=== PATIENT | female | born 1985 | race Caucasian/White ===

== ENCOUNTER 2016-08-16 21:10 | Emergency (ER) | payer SELFPAY ==
[~2016-08-16] VITALS: Ht 167.6 cm; Wt 89.6 kg
[~2016-08-16 21:10] MED LIST: CALC-137 PO; IRONCAP2 PO; LEVO100T4 PO; LISI-587 PO; POTA595T5 PO
[2016-08-16 21:24] VITALS: BP 122/74; PULSE 77; RESP 20; TEMP 98.1; O2SAT 100
[2016-08-16] MEDS ORDERED: CALCTAB98 PO (21:34)
[2016-08-16] MEDS ORDERED: LISI20TA3 PO (21:34)
[2016-08-16] MEDS ORDERED: FERR1TAB58 PO (21:34)
[2016-08-16] MEDS ORDERED: LEVO75TA3 PO (21:34)
[2016-08-16] MEDS ORDERED: M2 M100C (21:34)
[2016-08-16] MEDS ORDERED: POTA75TA PO (21:34)
[2016-08-16] MEDS ORDERED: MULTCAP PO (21:34)
[2016-08-16 21:45] LABS: BLOOD, URINE SMALL (NEG); GLUCOSE,URINE NEG (NEG); KETONE, URINE NEG (NEG); NITRITE,URINE NEG (NEG)
[2016-08-16 21:59] LABS: URINE COLOR YELLOW (YELLW/STRAW)
[2016-08-16 22:00] LABS: BACTERIA, URINE FEW /hpf; COMMENT (UR) CULTURE INDICATED; CULTURE IF INDICATED CULTURE INDICATED; SQUAMOUS EPITHELIAL CELL URINE 0-5 /hpf (0-5)
[2016-08-16 22:01] LABS: MUCUS URINE OCC /lpf (OCC)
[2016-08-16] MEDS ORDERED: BACT800T5 PO (22:10)
--- NOTE | 2016-08-16 22:11 | PD ---
HPI . Dysuria Chief Complaint: Complaint Time Seen by Provider: 21:34 Travel History International Travel<30 days: No Contact w/Intl Traveler<30days: No Traveled to known affect area: No History of Present Illness HPI Patient presents with a four-day history of dysuria. She has treated it at home with cranberry juice and AZO. She has had moderate relief of her symptoms with this treatment. It does have persisted. She denies any associated fever or flank pain. She is not having any vomiting. Pain is rated as a 6/10. 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) Immunizations Current: No Migraines: Yes Thyroid Disease: Yes (HYPOTHYROID) Tetanus Vaccination: Never Vaccinated ?: Not LMP: 08/09/16 Menopausal: No : 2 Para: 2 Past Surgical History Section: Yes (2007 AND 07/27/10) Social History Alcohol Use: No Tobacco Use: No Substance Use: No Allergies-Medications (Allergen,Severity, Reaction): Coded Allergies: Lactose (Verified Allergy, Severe, 08/16/16) Morphine (Unverified Allergy, Intermediate, Itching, 08/16/16) Tramadol (Unverified Allergy, Intermediate, Itching, 08/16/16) Milk (Verified Adverse Reaction, Mild, NAUSEA/INCREASED PHLEGM PRODUCTION , 08/16/16) *MDRO Multi-Drug Resistant Organism (Unverified Adverse Reaction, Unknown , 08/16/16) 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 Reported Meds & Prescriptions Reported Meds & Active Scripts Active Reported Multi For Her (Multiple Vitamins W/ Minerals) 1 Cap Cap Cap PO Magnesium 100 Mg Cap Calcium (Calcium Carbonate-Cholecalciferol) 1,250-125 Mg-Unit Tab 1 Tab PO BID Potassium 75 Mg Tab Cap PO Iron (Ferrous Sulfate) 50 Mg Tab 65 Mg PO DAILY Lisinopril-Hctz 20-25 Mg Tab 1 Tab PO DAILY Levothyroxine (Levothyroxine Sodium) 75 Mcg Tab 75 Mcg PO DAILY Review of Systems Except as stated in HPI: all other systems reviewed are Neg General / Constitutional: No: Fever, Chills Genitourinary: Positive: Dysuria, Pelvic Pain Physical Exam Narrative GENERAL: Awake and alert and in no acute distress. SKIN: Warm and dry. HEAD: Atraumatic. Normocephalic. EYES: Pupils equal and round. NECK: Trachea midline. CARDIOVASCULAR: Regular rate and rhythm. RESPIRATORY: No accessory muscle use. GI/: Suprapubic tenderness with no guarding or rebound. No CVA tenderness. MUSCULOSKELETAL: No obvious deformities. No edema. NEUROLOGICAL: Awake and alert. No obvious cranial nerve deficits. Motor grossly within normal limits. Normal speech. PSYCHIATRIC: Appropriate mood and affect; insight and judgment normal. Data Data Last Documented VS Vital Signs Date Time Temp Pulse Resp B/P Pulse Ox O2 Delivery O2 Flow Rate FiO2 08/16/16 21:24 98.1 77 20 122/74 100 Orders Urinalysis - C+S If Indicated (08/16/16 21:34) Urine Culture (08/16/16 21:38) Labs Laboratory Tests Test 08/16/16 21:38 Urine Color YELLOW Urine Turbidity CLEAR Urine pH 6.0 Urine Specific [place] 1.024 Urine Protein NEG mg/dL Urine Glucose (UA) NEG mg/dL Urine Ketones NEG mg/dL Urine Occult Blood SMALL Urine Nitrite NEG Urine Bilirubin NEG Urine Leukocyte Esterase SMALL Urine RBC 4-9 /hpf Urine WBC 9-14 /hpf Urine WBC Clumps FEW Urine Squamous Epithelial 0-5 /hpf Cells Urine Bacteria FEW /hpf Urine Mucus OCC /lpf Microscopic Urinalysis Comment CULTURE INDICATED MDM Medical Decision Making Medical Screen Exam Complete: Yes Emergency Medical Condition: Yes Differential Diagnosis Final differential diagnosis of urinary symptoms includes but is not limited to UTI, kidney stone, pyelonephritis, bacterial vaginosis, yeast infection, urinary retention Narrative Course Patient presents complaining with suprapubic discomfort and dysuria. Does have been moderately relieved by cranberry juice and AZO. UA is compatible with UTI. Diagnosis Primary Impression: Urinary tract infection Qualified Code: N30.00 - Acute cystitis without hematuria Patient Instructions: General Instructions, Urinary Tract Infection in Women ( GEN) Med/Other Pt SpecificInfo: Prescription(s) given Scripts Sulfamethoxazole-Trimethoprim (Bactrim DS)800-160 Mg Tab1 Tab PO BID #14 TAB Ref 0 Prov:Eve Moreno MD 08/16/16 Disposition: 01 DISCHARGE HOME Condition: Stable Eve Moreno MD August 16, 2016 22:11
[2016-08-16] MEDS ORDERED: SULFAMETHOXAZOLE-TRIMETHOPRIM DS 800-160 MG TAB PO ONE (22:15)
== END 2016-08-16 22:38 | disposition home or self-care (01) ==
LOC: PHED 21:10
DX: N39.0 Urinary tract infection, site not specified (principal); B96.20 Unspecified Escherichia coli [E. coli] as the cause of diseases classified elsewhere; D64.9 Anemia, unspecified; E03.9 Hypothyroidism, unspecified; E78.00 Pure hypercholesterolemia, unspecified; I10 Essential (primary) hypertension; M41.9 Scoliosis, unspecified; G80.9 Cerebral palsy, unspecified
CPT/HCPCS: 81001; 87077; 87086; 87186; 99283

== ENCOUNTER 2016-09-14 20:17 | Emergency (ER) | payer SELFPAY ==
[~2016-09-14] VITALS: Ht 167.6 cm; Wt 89.9 kg
[~2016-09-14 20:17] MED LIST changes: +BACT800T5 PO; -CALC-137 PO; +CALCTAB98 PO; +FERR1TAB58 PO; -IRONCAP2 PO; -LEVO100T4 PO; +LEVO75TA3 PO; -LISI-587 PO; +LISI20TA3 PO; +M2 M100C; +MULTCAP PO; -POTA595T5 PO; +POTA75TA PO
[2016-09-14 20:22] VITALS: BP 113/69; PULSE 84; RESP 16; TEMP 98.4; O2SAT 100
[2016-09-14] MEDS ORDERED: MULTTAB24 PO (20:42)
[2016-09-14] MEDS ORDERED: POTASSIUM PO (20:42)
[2016-09-14] MEDS ORDERED: CALCTAB19 PO (20:42)
[2016-09-14] MEDS ORDERED: MAGN200T PO (20:42)
[2016-09-14] MEDS ORDERED: FERR140T PO (20:42)
--- NOTE | 2016-09-14 20:49 | PD ---
HPI Chief Complaint: Pain: Acute or Chronic Time Seen by Provider: 20:25 Travel History International Travel<30 days: No Contact w/Intl Traveler<30days: No Traveled to known affect area: No History of Present Illness HPI The patient is a 30-year-old female that says her right nipple area has been tender for 2 days. She thinks she may have been sleeping on it wrong. She denies any jogging or anything to cause a friction burn. She denies any fever or any masses in the breast. She does not have a nipple discharge. She has been taking hydrochlorothiazide for her blood pressure. The patient sleeps on the right side. There is no involvement of the left breast. 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) Immunizations Current: No Migraines: Yes Thyroid Disease: Yes (HYPOTHYROID) ?: Not LMP: 09/12/16 Menopausal: No : 2 Para: 2 Past Surgical History Section: Yes (2007 AND 07/27/10) Social History Alcohol Use: No Tobacco Use: No Substance Use: No Allergies-Medications (Allergen,Severity, Reaction): Coded Allergies: Cipro (Verified Allergy, Severe, RESISTANT, 09/14/16) Lactose (Verified Allergy, Severe, 09/14/16) Morphine (Unverified Allergy, Intermediate, Itching, 09/14/16) Tramadol (Unverified Allergy, Intermediate, Itching, 09/14/16) Milk (Verified Adverse Reaction, Mild, NAUSEA/INCREASED PHLEGM PRODUCTION , 09/14/16) *MDRO Multi-Drug Resistant Organism (Unverified Adverse Reaction, Unknown , 09/14/16) 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 Reported Meds & Prescriptions Reported Meds & Active Scripts Active Bactrim DS (Sulfamethoxazole-Trimethoprim) 800-160 Mg Tab 1 Tab PO BID Reported Multi For Her (Multiple Vitamins W/ Minerals) 1 Cap Cap Cap PO Magnesium 100 Mg Cap Calcium (Calcium Carbonate-Cholecalciferol) 1,250-125 Mg-Unit Tab 1 Tab PO BID Potassium 75 Mg Tab Cap PO Iron (Ferrous Sulfate) 50 Mg Tab 65 Mg PO DAILY Lisinopril-Hctz 20-25 Mg Tab 1 Tab PO DAILY Levothyroxine (Levothyroxine Sodium) 75 Mcg Tab 75 Mcg PO DAILY Review of Systems Except as stated in HPI: all other systems reviewed are Neg Physical Exam Narrative GENERAL: Well-nourished, well-developed patient in minimal apparent distress with her right breast pain. Her vital signs are normal. SKIN: Focused skin assessment warm/dry. The breasts both appear symmetric without any masses. There is no evidence of friction burn, redness, cellulitis or abscess on the right breast. The breasts are somewhat pendulous and could get caught while sleeping. No retraction is noted of the breast. HEAD: Normocephalic. EYES: No scleral icterus. No injection or drainage. NECK: Supple, trachea midline. No JVD or lymphadenopathy. CARDIOVASCULAR: Regular rate and rhythm without murmurs, gallops, or rubs. RESPIRATORY: Breath sounds equal bilaterally. No accessory muscle use. GASTROINTESTINAL: Abdomen soft, non-tender, nondistended. MUSCULOSKELETAL: No cyanosis, or edema. BACK: Nontender without obvious deformity. No CVA tenderness. Data Data Last Documented VS Vital Signs Date Time Temp Pulse Resp B/P Pulse Ox O2 Delivery O2 Flow Rate FiO2 09/14/16 20:22 98.4 84 16 113/69 100 MDM Medical Decision Making Medical Screen Exam Complete: Yes Emergency Medical Condition: Yes Medical Record Reviewed: Yes Differential Diagnosis Cellulitis breast, abscess breast, friction burn nipple, hydrochlorothiazide related breast pain, trauma to right breast while sleeping Narrative Course I cannot find a reason for the patient's breast pain by examining the breast. There is no redness, abscess, cellulitis. There may have been minimal trauma to the right wrist while sleeping. Hydrochlorothiazide related breast pain is usually found in older women who have been on hydrochlorothiazide for a prolonged period of time. Nevertheless, the patient should hydrate herself well and wear a loose brought night to protect the breast. Since she does sleep on her right side the right breast may be involved in a slight crushing trauma. She does have pendulous breasts. Diagnosis Primary Impression: Breast pain, right Additional Instructions: As we discussed, I could find no other reason for your breast pain other than some trauma by sleeping on her right side. Do hydrate herself with Gatorade, this may help with hydrochlorothiazide related breast pain. I could find no infection. Follow-up with Dr. Carrera as scheduled. Wear a loose bra to protect your breast at night. Med/Other Pt SpecificInfo: No Change to Meds Disposition: 01 DISCHARGE HOME Condition: Stable Isaiah Sunshine MD September 14, 2016 20:48
== END 2016-09-14 21:00 | disposition home or self-care (01) ==
LOC: PHED 20:17
DX: N64.4 Mastodynia (principal); N64.89 Other specified disorders of breast; D64.9 Anemia, unspecified; I10 Essential (primary) hypertension; E78.00 Pure hypercholesterolemia, unspecified; K58.9 Irritable bowel syndrome, unspecified; G80.9 Cerebral palsy, unspecified; E03.9 Hypothyroidism, unspecified; M41.9 Scoliosis, unspecified
CPT/HCPCS: 99282

== ENCOUNTER 2016-11-08 12:46 | Emergency (ER) | payer SELFPAY ==
[~2016-11-08 12:46] MED LIST changes: -BACT800T5 PO; +CALCTAB19 PO; -CALCTAB98 PO; +FERR140T PO; -FERR1TAB58 PO; -M2 M100C; +MAGN200T PO; -MULTCAP PO; +MULTTAB24 PO; -POTA75TA PO
--- NOTE | 2016-11-08 12:53 | PD ---
HPI Chief Complaint: Skin Problem Time Seen by Provider: 12:53 Travel History International Travel<30 days: No Contact w/Intl Traveler<30days: No History of Present Illness HPI 31-year-old female presents the emergency department with several day history of worsening painful burning vesicular rash to the right upper back, extending around to the right breast. Patient states she did have chickenpox as a child, and thinks she may have shingles. She denies fever, chills, cough, or other constitutional symptoms. Patient states that it is very painful at an 8 out of 10. She has been using [id number] topical Caladryl with some relief. Patient is also been taking Naprosyn. Patient has a history of MRSA, is allergic to Cipro, lactulose, milk, morphine, and tramadol. 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) Immunizations Current: No Migraines: Yes Thyroid Disease: Yes (HYPOTHYROID) Menopausal: No : 2 Para: 2 Past Surgical History Section: Yes (2007 AND 07/27/10) Social History Alcohol Use: No Tobacco Use: No Substance Use: No Allergies-Medications (Allergen,Severity, Reaction): Coded Allergies: Cipro (Verified Allergy, Severe, RESISTANT, 11/08/16) Lactose (Verified Allergy, Severe, 11/08/16) Morphine (Unverified Allergy, Intermediate, Itching, 11/08/16) Tramadol (Unverified Allergy, Intermediate, Itching, 11/08/16) Milk (Verified Adverse Reaction, Mild, NAUSEA/INCREASED PHLEGM PRODUCTION , 11/08/16) *MDRO Multi-Drug Resistant Organism (Unverified Adverse Reaction, Unknown , 11/08/16) 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 Reported Meds & Prescriptions Reported Meds & Active Scripts Active Gabapentin 100 Mg Cap 100 Mg PO TID Acyclovir 200 Mg Cap 800 Mg PO 5 TIMES A DAY 7 Days Reported Magnesium 200 Mg Tab 200 Mg PO DAILY Multi For Her (Multiple Vitamins W/ Minerals) 1 Tab Tab 1 Tab PO DAILY Ferrous Sulfate ER (Ferrous Sulfate) 140 Mg Tab 65 Mg PO DAILY Calcium 600+D 200 (Calcium Carbonate-Vitamin D) 600-200 Mg-Unit Tab 2 Tab PO DAILY Lisinopril-Hctz 20-25 Mg Tab 1 Tab PO DAILY Levothyroxine (Levothyroxine Sodium) 75 Mcg Tab 75 Mcg PO DAILY Review of Systems Except as stated in HPI: all other systems reviewed are Neg General / Constitutional: No: Fever Eyes: No: Visual changes HENT: No: Headaches Cardiovascular: No: Chest Pain or Discomfort Respiratory: No: Shortness of Breath Gastrointestinal: No: Abdominal Pain Genitourinary: No: Dysuria Musculoskeletal: No: Pain Skin: Positive Rash, Positive Other (see history present illness.) Neurologic: No: Weakness Psychiatric: No: Depression Endocrine: No: Polydipsia Hematologic/Lymphatic: No: Easy Bruising Physical Exam Narrative GENERAL: Patient appears in mild to moderate distress. She is examined with her children in the room. SKIN: Warm and dry. Normal color. Normal turgor. Patient has a patch of vesicular rash extending around from the right upper shoulder, to the lateral upper thorax and right breast consistent with herpes zoster. HEAD: Atraumatic. Normocephalic. EYES: Pupils equal and round. No scleral icterus. No injection or drainage. ENT: No nasal bleeding or discharge. Mucous membranes pink and moist. Pharynx is clear. Airway is patent. NECK: Trachea midline. Supple and nontender. CARDIOVASCULAR: Regular rate and rhythm. RESPIRATORY: No accessory muscle use. Clear to auscultation. Breath sounds equal bilaterally. MUSCULOSKELETAL: Extremities without clubbing, cyanosis, or edema. No obvious deformities. NEUROLOGICAL: Awake and alert. No obvious cranial nerve deficits. Motor grossly within normal limits. Five out of 5 muscle strength in the arms and legs. Normal speech. PSYCHIATRIC: Appropriate mood and affect; insight and judgment normal. Data Data Last Documented VS Vital Signs Date Time Temp Pulse Resp B/P Pulse Ox O2 Delivery O2 Flow Rate FiO2 11/08/16 13:09 98.6 104 18 114/76 100 MDM Medical Decision Making Medical Screen Exam Complete: Yes Emergency Medical Condition: Yes Differential Diagnosis Cellulitis. Herpes zoster. Dermatitis. Poison bettie. Narrative Course Patient is medically stable at time of exam. Patient is felt to have herpes zoster flare. Patient will be treated with acyclovir 200 mg capsules, 4 capsules 5 times daily 7 days. Patient is also given gabapentin 100 mg 3 times daily for pain #30. Patient can continue with Naprosyn as well as Tylenol as discussed. Patient can continue with topical Caladryl as discussed. Patient should follow-up with her primary care physician in the next week to ensure clearance or return to emergency Department with any worsening symptoms as needed. Diagnosis Primary Impression: Shingles outbreak Qualified Code: B02.9 - Herpes zoster without complication Referrals: Primary Care Physician Patient Instructions: General Instructions, Shingles (ED), Shingles Vaccine (ED ) Additional Instructions: Patient is felt to have herpes zoster flare. Patient will be treated with acyclovir 200 mg capsules, 4 capsules 5 times daily 7 days. Patient is also given gabapentin 100 mg 3 times daily for pain #30. Patient can continue with Naprosyn as well as Tylenol as discussed. Patient can continue with topical Caladryl as discussed. Patient should follow-up with her primary care physician in the next week to ensure clearance or return to emergency Department with any worsening symptoms as needed. Med/Other Pt SpecificInfo: Prescription(s) given Scripts Gabapentin 100 Mg [id number] Mg PO TID #30 CAP Ref 0 Prov:Rosette Ren MD 11/08/16 Acyclovir 200 Mg [id number] Mg PO 5 TIMES A DAY 7 Days Ref 0 Prov:Rosette Ren MD 11/08/16 Disposition: 01 DISCHARGE HOME Condition: Stable Quintin Manning Nov 08, 2016 12:53
[2016-11-08] MEDS ORDERED: GABA100C4 PO (13:03)
[2016-11-08] MEDS ORDERED: ACYC200C66 PO (13:03)
[2016-11-08 13:09] VITALS: BP 114/76; PULSE 104; RESP 18; TEMP 98.6; O2SAT 100
== END 2016-11-08 13:29 | disposition home or self-care (01) ==
LOC: PHEFT 12:46
DX: B02.9 Zoster without complications (principal); I10 Essential (primary) hypertension; E03.9 Hypothyroidism, unspecified; E78.00 Pure hypercholesterolemia, unspecified; Z86.2 Personal history of diseases of the blood and blood-forming organs and certain disorders involving the immune mechanism; Z86.14 Personal history of Methicillin resistant Staphylococcus aureus infection; Z87.19 Personal history of other diseases of the digestive system; Z87.39 Personal history of other diseases of the musculoskeletal system and connective tissue; Z86.69 Personal history of other diseases of the nervous system and sense organs
CPT/HCPCS: 99284

== ENCOUNTER 2017-02-18 19:42 | Emergency (ER) | payer MEDICAID, OTHER ==
[~2017-02-18] VITALS: Ht 167.6 cm; Wt 85.8 kg
[~2017-02-18 19:42] MED LIST changes: +ACET-815 PO; -FERR140T PO; +MOTI25CH; +[UNRECOGNIZED DRUG - OTHER]
[2017-02-18 19:47] VITALS: BP 122/68; PULSE 104; RESP 20; TEMP 98.3; O2SAT 99
[2017-02-18] MEDS ORDERED: TYLE325T PO (20:03)
[2017-02-18] MEDS ORDERED: FLUT1SPR5 EACH NARE (20:03)
[2017-02-18] MEDS ORDERED: LEVO100T5 PO (20:03)
[2017-02-18] MEDS ORDERED: CETI10 PO (20:03)
[2017-02-18] MEDS ORDERED: PRED20 PO (20:12)
[2017-02-18] MEDS ORDERED: AMOX500T PO (20:12)
--- NOTE | 2017-02-18 20:13 | PD ---
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) Immunizations Current: No Migraines: Yes Thyroid Disease: Yes (HYPOTHYROID) Tetanus Vaccination: > 5 Years Influenza Vaccination: No ?: Not LMP: 02/18/17 Menopausal: No : 2 Para: 2 Past Surgical History Section: Yes (2007 AND 07/27/10) Social History Alcohol Use: No Tobacco Use: No Substance Use: No Allergies-Medications (Allergen,Severity, Reaction): Coded Allergies: ciprofloxacin (Verified Allergy, Severe, RESISTANT, 02/18/17) lactose (Verified Allergy, Severe, 02/18/17) morphine (Verified Allergy, Intermediate, Itching, 02/18/17) tramadol (Verified Allergy, Intermediate, Itching, 02/18/17) milk (Verified Adverse Reaction, Mild, NAUSEA/INCREASED PHLEGM PRODUCTION , 02/18/17) *MDRO Multi-Drug Resistant Organism (Verified Adverse Reaction, Unknown, 02/18/17) 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 Reported Meds & Prescriptions Reported Meds & Active Scripts Active Reported Levothyroxine (Levothyroxine Sodium) 100 Mcg Tab 100 Mcg PO DAILY Tylenol (Acetaminophen) 325 Mg Tab 650 Mg PO Q4H PRN Flonase Nasal [place] (Fluticasone Nasal [place]) 50 Mcg/Act [place] 100 Mcg EACH NARE BID Cetirizine (Cetirizine HCl) 10 Mg Tab 10 Mg PO DAILY Lisinopril-Hctz 20-25 Mg Tab 1 Tab PO DAILY Data Data Last Documented VS Vital Signs Date Time Temp Pulse Resp B/P (MAP) Pulse Ox O2 Delivery O2 Flow Rate FiO2 02/18/17 19:47 98.3 104 20 122/68 (86) 99 MDM Medical Decision Making Medical Screen Exam Complete: Yes Emergency Medical Condition: Yes Differential Diagnosis OTITIS EXTERNA, OTITIS MEDIA, MASTOIDITIS, OTALGIA Narrative Course 31 YEAR OLD female with right ear pain x 2 week. No relief with zyrtec & flonase. On exam patient has fluid bubbles behind TM, no perforation, no mastoid tenderness. Diagnosis Primary Impression: Otitis media Qualified Codes: H66.90 - Otitis media, unspecified, unspecified ear Referrals: Primary Care Physician Scripts Prednisone (Prednisone) 20 Mg Tab 40 MG PO DAILY, #8 TAB 0 Refills Take 40 mg (2 tablets) daily for 5 days Prov: Kate Floyd 02/18/17 Amoxicillin (Amoxicillin) 500 Mg Tab 500 MG PO TID for Infection for 10 Days, TAB 0 Refills Prov: Kate Floyd 02/18/17 Disposition: 01 DISCHARGE HOME Condition: Stable Kate Floyd Feb 18, 2017 20:13
== END 2017-02-18 20:24 | disposition home or self-care (01) ==
LOC: PHEFT 19:42
DX: H66.90 Otitis media, unspecified, unspecified ear (principal); E03.9 Hypothyroidism, unspecified; I10 Essential (primary) hypertension
CPT/HCPCS: 99283

== ENCOUNTER 2017-03-11 21:50 | Emergency (ER) | payer MEDICAID ==
[~2017-03-11] VITALS: Ht 167.6 cm; Wt 87.0 kg
[~2017-03-11 21:50] MED LIST changes: -ACET-815 PO; +AMOX500T PO; -CALCTAB19 PO; +CETI10 PO; +FLUT1SPR5 EACH NARE; +LEVO100T5 PO; -LEVO75TA3 PO; -MAGN200T PO; -MOTI25CH; -MULTTAB24 PO; +PRED20 PO; +TYLE325T PO; -[UNRECOGNIZED DRUG - OTHER]
[2017-03-11 21:58] VITALS: BP 128/69; PULSE 83; RESP 18; TEMP 98.7; O2SAT 100
[2017-03-11 22:06] VITALS: BP 128/69; PULSE 79; RESP 16; TEMP 98.7; O2SAT 100
--- NOTE | 2017-03-11 22:43 | PD ---
HPI Chief Complaint: ENT Complaint Time Seen by Provider: 22:39 Travel History International Travel<30 days: No Contact w/Intl Traveler<30days: No Traveled to known affect area: No History of Present Illness HPI 31-year-old female presents to the emergency department for complaint of chronic right ear pain that has not improved after a one-time dose of oral antibiotic. Patient states she already uses [id number] Flonase Sudafed Mucinex and as needed ibuprofen and acetaminophen without symptom relief. Patient's had no fever. Patient's had no trauma. Patient does not report any change in the hearing or loss of hearing. No dental pain no neck pain no headache. Patient states that her pain is 6/10 intensity. Patient states she has not followed up with her primary care provider and has not gone to see an press offbearer that she cannot afford to do so. Patient thinks that she has seasonal allergies and environmental allergies. Patient denies other concerns or complaints. Patient is unable to identify exacerbating or alleviating factors. 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) Immunizations Current: No Migraines: Yes Thyroid Disease: Yes (HYPOTHYROID) Influenza Vaccination: No ?: Not LMP: 02/28 Menopausal: No : 2 Para: 2 Past Surgical History Section: Yes (2007 AND 07/27/10) Social History Alcohol Use: No Tobacco Use: No Substance Use: No Allergies-Medications (Allergen,Severity, Reaction): Coded Allergies: ciprofloxacin (Verified Allergy, Severe, RESISTANT, 03/11/17) lactose (Verified Allergy, Severe, 03/11/17) morphine (Verified Allergy, Intermediate, Itching, 03/11/17) tramadol (Verified Allergy, Intermediate, Itching, 03/11/17) milk (Verified Adverse Reaction, Mild, NAUSEA/INCREASED PHLEGM PRODUCTION , 03/11/17) *MDRO Multi-Drug Resistant Organism (Verified Adverse Reaction, Unknown, 03/11/17) 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 Reported Meds & Prescriptions Reported Meds & Active Scripts Active Azithromycin 500 Mg Tab 500 Mg PO DAILY Reported Levothyroxine (Levothyroxine Sodium) 100 Mcg Tab 100 Mcg PO DAILY Flonase Nasal [place] (Fluticasone Nasal [place]) 50 Mcg/Act [place] 100 Mcg EACH NARE BID Cetirizine (Cetirizine HCl) 10 Mg Tab 10 Mg PO DAILY Lisinopril-Hctz 20-25 Mg Tab 1 Tab PO DAILY Review of Systems Except as stated in HPI: all other systems reviewed are Neg General / Constitutional: No: Fever Eyes: No: Visual changes HENT: Positive: Congestion, Earache, No: Headaches Cardiovascular: No: Chest Pain or Discomfort Respiratory: No: Shortness of Breath Gastrointestinal: No: Abdominal Pain Genitourinary: No: Flank Pain Musculoskeletal: No: Pain Skin: No Rash Neurologic: No: Weakness Psychiatric: No: Anxiety Hematologic/Lymphatic: No: Lymph Node Enlargement Physical Exam Narrative GENERAL: Well-developed well-nourished female in no acute distress no respiratory distress SKIN: Warm and dry. HEAD: Normocephalic. EYES: No scleral icterus. No injection or drainage. ENT: He is membranes moist airway is patent tympanic membranes without redness loss of landmarks or perforation. NECK: Supple, trachea midline. No JVD or lymphadenopathy. No meningismus no nuchal rigidity. CARDIOVASCULAR: Regular rate and rhythm without murmurs, gallops, or rubs. RESPIRATORY: Breath sounds equal bilaterally. No accessory muscle use. Data Data Last Documented VS Vital Signs Date Time Temp Pulse Resp B/P (MAP) Pulse Ox O2 Delivery O2 Flow Rate FiO2 03/11/17 23:04 69 16 143/81 (101) 99 03/11/17 23:03 Room Air 03/11/17 22:06 98.7 Orders Orders Ed Discharge Order (03/11/17 22:39) MDM Medical Decision Making Medical Screen Exam Complete: Yes Emergency Medical Condition: Yes Medical Record Reviewed: Yes Differential Diagnosis Otalgia, otitis media, otitis externa, sinusitis, rhinosinusitis, mastoiditis, dentalgia Narrative Course Patient with recurrent otalgia of unclear etiology with seasonal and environmental rhinosinusitis with incomplete response to round of amoxicillin in view of patient's history and ongoing symptoms will give a sinusitis dose of azithromycin to see if symptoms can be eradicated as she has artery using all the available [id number] regimens to resolve her symptoms. Patient also referred to ENT. 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
[2017-03-11] MEDS ORDERED: AZIT500T2 PO (22:44)
[2017-03-11 23:03] VITALS: BP 143/81; PULSE 69; RESP 16; O2SAT 99
[2017-03-11 23:04] VITALS: BP 143/81
== END 2017-03-11 23:05 | disposition home or self-care (01) ==
LOC: PHED 21:50
DX: H92.01 Otalgia, right ear (principal); J32.9 Chronic sinusitis, unspecified
CPT/HCPCS: 99283

== ENCOUNTER 2017-07-25 06:03 | Emergency (ER) | payer MEDICAID ==
[~2017-07-25] VITALS: Ht 167.6 cm; Wt 88.4 kg
[~2017-07-25 06:03] MED LIST changes: -AMOX500T PO; +AZIT500T2 PO; -PRED20 PO; -TYLE325T PO
[2017-07-25 06:06] VITALS: BP 133/85; PULSE 111; RESP 18; TEMP 98.5; O2SAT 98
[2017-07-25 06:23] VITALS: BP 118/60; PULSE 96; RESP 18; O2SAT 99
--- NOTE | 2017-07-25 06:41 | PD ---
HPI Chief Complaint: Chest Pain Time Seen by Provider: 06:14 Travel History International Travel<30 days: No Contact w/Intl Traveler<30days: No Traveled to known affect area: No History of Present Illness HPI The patient is a 31-year-old female that complains of a pressure type chest pain for 3 days. The pain comes on and off and last as long as 1 hour. The pain is located in the midsternal area and associated with nausea, shortness of breath but denies any diaphoresis or radiation of pain. She does not have any history of heart disease and does not smoke but she does have high cholesterol and hypertension. The pain is a 2-3/10. The patient states she thinks the chest pain may be from the Zoloft, she stopped taking it Monday. She states she was only on Zoloft for 3 days. She states she was itchy for 5 days even after she stopped taking the Zoloft. She has never had a stress test. 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) Immunizations Current: No Migraines: Yes Thyroid Disease: Yes (HYPOTHYROID) Tetanus Vaccination: > 5 Years Influenza Vaccination: No ?: Unknown LMP: 07/03/17 Menopausal: No : 2 Para: 2 Past Surgical History Section: Yes (2007 AND 07/27/10) Gynecologic Surgery: Yes (c section) Social History Alcohol Use: No Tobacco Use: No Substance Use: No Allergies-Medications (Allergen,Severity, Reaction): Coded Allergies: ciprofloxacin (Verified Allergy, Severe, RESISTANT, 07/25/17) lactose (Verified Allergy, Severe, 07/25/17) morphine (Verified Allergy, Intermediate, Itching, 07/25/17) tramadol (Verified Allergy, Intermediate, Itching, 07/25/17) milk (Verified Adverse Reaction, Mild, NAUSEA/INCREASED PHLEGM PRODUCTION , 07/25/17) *MDRO Multi-Drug Resistant Organism (Verified Adverse Reaction, Unknown, ) 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 Her vital signs show heart rate of 111 but otherwise are normal. SKIN: Focused skin assessment warm/dry. HEAD: Atraumatic. Normocephalic. EYES: Pupils equal and round. No scleral icterus. No injection or drainage. ENT: No nasal bleeding or discharge. Mucous membranes pink and moist. NECK: Trachea midline. No JVD. CARDIOVASCULAR: Regular rate and rhythm. No murmur appreciated. I cannot reproduce the patient's pain by pressing on the chest wall. RESPIRATORY: No accessory muscle use. Clear to auscultation. Breath sounds equal bilaterally. GASTROINTESTINAL: Abdomen soft, non-tender, nondistended. Hepatic and splenic margins not palpable. MUSCULOSKELETAL: No obvious deformities. No clubbing. No cyanosis. No edema. NEUROLOGICAL: Awake and alert. No obvious cranial nerve deficits. Motor grossly within normal limits. Normal speech. PSYCHIATRIC: Appropriate mood and affect; insight and judgment normal. Data Data Last Documented VS Vital Signs Date Time Temp Pulse Resp B/P (MAP) Pulse Ox O2 Delivery O2 Flow Rate FiO2 07/25/17 06:23 96 18 99 Room Air 07/25/17 06:23 118/60 (79) 07/25/17 06:06 98.5 Orders Orders Complete Blood Count With Diff (07/25/17 06:42) Comprehensive Metabolic Panel (07/25/17 06:42) Prothrombin Time / Inr (Pt) (07/25/17 06:42) Act Partial Throm Time (Ptt) (07/25/17 06:42) Troponin I (07/25/17 06:42) Aspirin Chew (Aspirin Chew) (07/25/17 06:45) Nitroglycerin Sl (Nitrostat Sl) (07/25/17 06:45) MDM Medical Decision Making Medical Screen Exam Complete: Yes Emergency Medical Condition: Yes Medical Record Reviewed: Yes Interpretation(s) The EKG shows sinus rhythm with a rate of [address] elevation or depression. The EKG is normal. Differential Diagnosis Acute coronary syndrome, chest wall pain, esophageal pain, anxiety related chest pain, gastrointestinal pain, pleuritic pain, chest pain etiology undetermined Narrative Course The patient is transferred to Dr. Killian at this time, it is now 0700. Isaiah Sunshine MD Jul 25, 2017 06:41
[2017-07-25] MEDS ORDERED: ASPIRIN 81 MG CHEW TAB PO ONE (06:45)
[2017-07-25] MEDS: NITROGLYCERIN 0.4 MG SL 25 TABS/BTL SL SCH ×3 (06:55→07:10)
[2017-07-25 07:02] VITALS: BP 109/62; PULSE 88; RESP 16; TEMP 98.6; O2SAT 100
[2017-07-25 07:03] LABS: AUTOMATED NEUTROPHIL # 4.4 TH/MM3 (1.8-7.7); BASOPHIL # 0.1 TH/MM3 (0-0.2); BASOPHIL % 0.7 % (0.0-2.0); EOSINOPHIL # 0.2 TH/MM3 (0-0.4); EOSINOPHIL % 2.3 % (0.0-4.0); HEMATOCRIT 38.5 % (35.0-46.0); LYMPH % 26.9 % (9.0-44.0); MEAN CELL VOLUME 90.6 FL (80.0-100.0); MEAN CORPUSCULAR HEMOGLOBIN 30.6 PG (27.0-34.0); MEAN CORPUSCULAR HGB CONC 33.7 % (32.0-36.0); MEAN PLATELET VOLUME 10.2 FL (7.0-11.0); MONO % 8.8 % (0.0-8.0); MONOCYTE # 0.7 TH/MM3 (0-0.9); NEUT % 61.3 % (16.0-70.0); PLATELET COUNT 181 TH/MM3 (150-450); RED BLOOD COUNT 4.25 MIL/MM3 (4.00-5.30); RED CELL DISTRIBUTION WIDTH 12.2 % (11.6-17.2); WHITE BLOOD COUNT 7.4 TH/MM3 (4.0-11.0)
[2017-07-25 07:09] VITALS: BP 131/71; PULSE 101
[2017-07-25 07:10] LABS: CHLORIDE 103 MEQ/L (98-107); SODIUM (NA) 136 MEQ/L (136-145)
[2017-07-25 07:13] LABS: CALCIUM 9.3 MG/DL (8.5-10.1)
[2017-07-25 07:14] LABS: ALBUMIN 3.9 GM/DL (3.4-5.0); BICARBONATE 27.6 MEQ/L (21.0-32.0); BLOOD UREA NITROGEN 16 MG/DL (7-18); GLUCOSE,RANDOM 100 MG/DL (74-106)
[2017-07-25 07:15] LABS: PROTHROMBIN TIME - PATIENT 10.4 SEC (9.8-11.6)
[2017-07-25 07:17] LABS: ALT (GPT) 20 U/L (10-53); AST (GOT) 13 U/L (15-37); GLOMERULAR FILTRATION RATE 97 ML/MIN (>89)
[2017-07-25 07:19] LABS: TOTAL BILIRUBIN ADULT 0.2 MG/DL (0.2-1.0); TOTAL PROTEIN 7.7 GM/DL (6.4-8.2)
[2017-07-25 07:20] LABS: ALKALINE PHOSPHATASE 38 U/L (45-117)
[2017-07-25 07:22] VITALS: BP 104/61; PULSE 83; RESP 16; O2SAT 100
[2017-07-25 07:22] LABS: TROPONIN I LESS THAN 0.02 NG/ML (0.02-0.05)
[2017-07-25] MEDS ORDERED: ONDANSETRON HCL 4 MG/2 ML VIAL IV PUSH ONE (07:30)
--- NOTE | 2017-07-25 07:31 | RADRPT ---
EXAM DATE/TIME: 07/25/2017 07:11 [facility] COMPARISON: No previous studies available for comparison. INDICATIONS : Substernal chest pain & hypertension. MEDICAL HISTORY : Hypercholesterolemia. Hypothyroidism. Shingles. Hypertension. IBS. Anemia. Scoliosis. SURGICAL HISTORY : section. ENCOUNTER: Initial ACUITY: 3 days PAIN SCORE: 3/10 LOCATION: chest FINDINGS: A single view of the chest demonstrates the lungs to be symmetrically aerated without evidence of mas s, infiltrate or effusion. The cardiomediastinal contours are unremarkable. Osseous structures are intact. CONCLUSION: Normal examination. Sinan Lopez MD on July 25, 2017 at 7:29 Board Certified Radiologist. This report was verified electronically.
[2017-07-25] MEDS ORDERED: LORA1TAB12 PO (07:54)
--- NOTE | 2017-07-25 07:55 | PD ---
Physical Exam Date Seen by Provider: Jul 25, 2017 Time Seen by Provider: 07:51 Narrative This 31-year-old female having some chest pressure off and on for several days. She was seen initially by Dr. Sunshine ordered a cardiac workup. EKG shows normal sinus rhythm. Her troponin has come back normal. Chest x-ray is negative. He does have a history of hypertension and high cholesterol. There is some family history of heart disease. She does say that she has been under an extraordinary amount of stress. Dr. Sunshine considered that chest pain center would be a good disposition for the patient. I have discussed this with her and she says she cannot do that at this time. She has obligations and children she has to care for. He does appear to be low risk I have cautioned her that we have not definitively ruled out cardiac illness and she should return if the pain gets worse. She does feel that it is related to anxiety. She has been on Zoloft and stopped that a few days ago because it was causing her itch. I will prescribe just 5 tablets of lorazepam for her to use on a trial basis. To follow-up with your own medical doctor Data Data Last Documented VS Vital Signs Date Time Temp Pulse Resp B/P (MAP) Pulse Ox O2 Delivery O2 Flow Rate FiO2 07/25/17 07:22 83 16 104/61 (75) 100 Room Air 07/25/17 07:02 98.6 Orders Orders Complete Blood Count With Diff (07/25/17 06:42) Comprehensive Metabolic Panel (07/25/17 06:42) Prothrombin Time / Inr (Pt) (07/25/17 06:42) Act Partial Throm Time (Ptt) (07/25/17 06:42) Troponin I (07/25/17 06:42) Aspirin Chew (Aspirin Chew) (07/25/17 06:45) Nitroglycerin Sl (Nitrostat Sl) (07/25/17 06:45) Ed Discharge Order (07/25/17 06:55) Ed Urine Pregnancytest Poc (07/25/17 07:06) Chest, Single Ap (07/25/17 ) Ondansetron Inj (Zofran Inj) (07/25/17 07:30) Electrocardiogram (07/25/17 06:24) Labs Laboratory Tests Test 07/25/17 07:00 White Blood Count 7.4 TH/MM3 Red Blood Count 4.25 MIL/MM3 Hemoglobin 13.0 GM/DL Hematocrit 38.5 % Mean Corpuscular Volume 90.6 FL Mean Corpuscular Hemoglobin 30.6 PG Mean Corpuscular Hemoglobin Concent 33.7 % Red Cell Distribution Width 12.2 % Platelet Count 181 TH/MM3 Mean Platelet Volume 10.2 FL Neutrophils (%) (Auto) 61.3 % Lymphocytes (%) (Auto) 26.9 % Monocytes (%) (Auto) 8.8 % Eosinophils (%) (Auto) 2.3 % Basophils (%) (Auto) 0.7 % Neutrophils # (Auto) 4.4 TH/MM3 Lymphocytes # (Auto) 2.0 TH/MM3 Monocytes # (Auto) 0.7 TH/MM3 Eosinophils # (Auto) 0.2 TH/MM3 Basophils # (Auto) 0.1 TH/MM3 CBC Comment DIFF FINAL Differential Comment Prothrombin Time 10.4 SEC Prothromb Time International Ratio 1.0 RATIO Activated Partial Thromboplast Time 26.3 SEC Blood Urea Nitrogen 16 MG/DL Creatinine 0.70 MG/DL Random Glucose 100 MG/DL Total Protein 7.7 GM/DL Albumin 3.9 GM/DL Calcium Level 9.3 MG/DL Alkaline Phosphatase 38 U/L Aspartate Amino Transf (AST/SGOT) 13 U/L Alanine Aminotransferase (ALT/SGPT) 20 U/L Total Bilirubin 0.2 MG/DL Sodium Level 136 MEQ/L Potassium Level 3.8 MEQ/L Chloride Level 103 MEQ/L Carbon Dioxide Level 27.6 MEQ/L Anion Gap 5 MEQ/L Estimat Glomerular Filtration Rate 97 ML/MIN Troponin I LESS THAN 0.02 NG/ML [facility] Medical Record Reviewed: Yes Supervised Visit with CRISTOPHER: Yes Differential Diagnosis Differential includes coronary artery disease, GERD, chest wall pain, anxiety Narrative Course Workup is negative for coronary artery disease though it has not been definitively ruled out. She feels she may be having anxiety symptoms and I will prescribe some lorazepam. Diagnosis Primary Impression: Atypical chest pain Scripts Lorazepam (Lorazepam) 1 Mg Tab 1 MG PO Q8H Y for ANXIETY, #6 TAB 0 Refills Prov: Nate Rowley MD 07/25/17 Disposition: 01 DISCHARGE HOME Condition: Stable Nate Rowley MD Jul 25, 2017 07:55
--- NOTE | 2017-07-25 07:56 | EKG ---
Date Performed: 07/25/2017 Time Performed: 06:24:27 PTAGE: 31 years EKG: Sinus rhythm Abnormal R wave progression in the lateral precordial leads. This could be due to changes in lead pl acement. Clinical correlation suggested. PREVIOUS TRACING : 11/29/2016 11.00 DOCTOR: Paco Monte Interpretating Date/Time 07/25/2017 07:55:21
== END 2017-07-25 08:07 | disposition home or self-care (01) ==
LOC: PHED 06:03
DX: R07.89 Other chest pain (principal); F41.9 Anxiety disorder, unspecified; R06.02 Shortness of breath; R11.0 Nausea; I10 Essential (primary) hypertension; E78.00 Pure hypercholesterolemia, unspecified; E03.9 Hypothyroidism, unspecified; G80.9 Cerebral palsy, unspecified; Z88.5 Allergy status to narcotic agent
CPT/HCPCS: 71045; 80053; 84484; 84703; 85025; 85610; 85730; 93005; 96374; 99285; J2405

== ENCOUNTER 2017-08-26 00:54 | Emergency (ER) | payer MEDICAID ==
[~2017-08-26] VITALS: Ht 167.6 cm; Wt 91.0 kg
[~2017-08-26 00:54] MED LIST changes: -AZIT500T2 PO; -CETI10 PO; -FLUT1SPR5 EACH NARE; +LORA1TAB12 PO
[2017-08-26 01:07] VITALS: BP 121/74; PULSE 80; RESP 18; TEMP 98.7; O2SAT 100
[2017-08-26 01:45] VITALS: BP 121/74; PULSE 80; RESP 18; TEMP 98.7; O2SAT 100
--- NOTE | 2017-08-26 02:27 | PD ---
HPI . sore throat Chief Complaint: ENT Complaint Time Seen by Provider: 01:42 Travel History International Travel<30 days: No Contact w/Intl Traveler<30days: No Traveled to known affect area: No History of Present Illness HPI Patient has sore throat ear pain and congestion for a week. She has no sick contacts . her 2 children her with there are not been sick . she also has had no ability to take ibuprofen it makes her feel weird and Sudafed made her heart race so she had to stop taking it , It also did not help alleviate her symptoms . patient has history of hyper-tension she is on HCTZ/ lisinopril . 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) Immunizations Current: No Migraines: Yes Thyroid Disease: Yes (HYPOTHYROID) Influenza Vaccination: No ?: Unknown LMP: 07/31/2017 Menopausal: No : 2 Para: 2 Past Surgical History Section: Yes (2007 AND 07/27/10) Gynecologic Surgery: Yes (c section) Social History Alcohol Use: No Tobacco Use: No Substance Use: No Allergies-Medications (Allergen,Severity, Reaction): Coded Allergies: ciprofloxacin (Verified Allergy, Severe, RESISTANT, 08/26/17) lactose (Verified Allergy, Severe, 08/26/17) morphine (Verified Allergy, Intermediate, Itching, 08/26/17) tramadol (Verified Allergy, Intermediate, Itching, 08/26/17) milk (Verified Adverse Reaction, Mild, NAUSEA/INCREASED PHLEGM PRODUCTION , 08/26/17) *MDRO Multi-Drug Resistant Organism (Verified Adverse Reaction, Unknown, ) 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 Reported Meds & Prescriptions Reported Meds & Active Scripts Active Guaifenesin AC Liq (Guaifenesin-Codeine Liq) 100-10 Mg/5 Ml Syrp 10 Ml PO Q6H PRN Flonase Nasal [place] (Fluticasone Nasal [place]) 50 Mcg/Act [place] 100 Mcg EACH NARE BID Atrovent HFA 12.9 GM Inh (Ipratropium Mcdade) 17 Mcg/Actuation Aer 2 Puff INH Q6HR PRN Lorazepam 1 Mg Tab 1 Mg PO Q8H PRN Reported Levothyroxine (Levothyroxine Sodium) 100 Mcg Tab 100 Mcg PO DAILY Lisinopril-Hctz 20-25 Mg Tab 1 Tab PO DAILY Review of Systems Except as stated in HPI: all other systems reviewed are Neg Physical Exam Narrative GENERAL: non toxic healthy appearing female with her 2 children SKIN: Warm and dry. HEAD: Atraumatic. Normocephalic. EYES: Pupils equal and round. No scleral icterus. No injection or drainage. ENT: No nasal bleeding or discharge. Mucous membranes pink and moist. NECK: Trachea midline. No JVD. CARDIOVASCULAR: Regular rate and rhythm. RESPIRATORY: No accessory muscle use. Clear to auscultation. Breath sounds equal bilaterally. GASTROINTESTINAL: Abdomen soft, non-tender, nondistended. Hepatic and splenic margins not palpable. MUSCULOSKELETAL: Extremities without clubbing, cyanosis, or edema. No obvious deformities. NEUROLOGICAL: Awake and alert. No obvious cranial nerve deficits. Motor grossly within normal limits. Five out of 5 muscle strength in the arms and legs. Normal speech. PSYCHIATRIC: Appropriate mood and affect; insight and judgment normal. Data Data Last Documented VS Vital Signs Date Time Temp Pulse Resp B/P (MAP) Pulse Ox O2 Delivery O2 Flow Rate FiO2 08/26/17 03:46 72 16 121/69 (86) 96 08/26/17 01:45 98.7 Orders Orders Influenzae A/B Antigen (08/26/17 01:57) Group A Rapid Strep Screen (08/26/17 01:57) Strep Culture (Group A) (08/26/17 02:31) Ed Discharge Order (08/26/17 03:40) MDM Medical Decision Making Medical Screen Exam Complete: Yes Emergency Medical Condition: Yes Differential Diagnosis viral illness vs strep or influenza wrist pain bursitis Narrative Course pt given sx tx flu and strep negative Pt given RX for flonase nasal spray Atrovent HFA for bronchitis symptoms and cough syrup Diagnosis Primary Impression: Viral illness Additional Impression: Bronchitis Patient Instructions: General Instructions, Viral Syndrome (ED) Scripts Guaifenesin-Codeine Liq (Guaifenesin AC Liq) 100-10 Mg/5 Ml Syrp 10 ML PO Q6H Y for COUGH, #1 BOTTLE 0 Refills Prov: Matt Abraham MD 08/26/17 Fluticasone Nasal [place] (Flonase Nasal [place]) 50 Mcg/Act [place] 100 MCG EACH NARE BID for Allergies, #1 BOTTLE 0 Refills Prov: Matt Abraham MD 08/26/17 Ipratropium HFA 12.9 GM Inh (Atrovent HFA 12.9 GM Inh) 17 Mcg/Actuation Aer 2 PUFF INH Q6HR Y for SHORTNESS OF BREATH, #1 INHALER 0 Refills Prov: Matt Abraham MD 08/26/17 Disposition: 01 DISCHARGE HOME Condition: Good Matt Abraham MD August 26, 2017 02:27
[2017-08-26] MEDS ORDERED: FLUT1SPR5 EACH NARE (03:42)
[2017-08-26] MEDS ORDERED: IPRA17I INH (03:42)
[2017-08-26] MEDS ORDERED: GUAISYP4 PO (03:43)
[2017-08-26 03:46] VITALS: BP 121/69
== END 2017-08-26 04:19 | disposition home or self-care (01) ==
LOC: PHED 00:54
DX: B34.9 Viral infection, unspecified (principal); J40 Bronchitis, not specified as acute or chronic; E03.9 Hypothyroidism, unspecified; E78.00 Pure hypercholesterolemia, unspecified; G80.9 Cerebral palsy, unspecified; I10 Essential (primary) hypertension; K58.9 Irritable bowel syndrome, unspecified; M41.9 Scoliosis, unspecified
CPT/HCPCS: 87081; 87804; 87880; 99283